=== PATIENT | male | born 1985 | race Two or more races ===

== ENCOUNTER 2024-12-11 08:02 | Emergency (ER) | payer BC ==
[~2024-12-11] VITALS: Ht 175.3 cm; Wt 95.3 kg
[2024-12-11 08:09] VITALS: BP 135/78
[2024-12-11] MEDS ORDERED: CLIN300C3 PO (08:35)
[2024-12-11] MEDS ORDERED: IBUP-1953 PO (08:35)
[2024-12-11] MEDS ORDERED: IBUPROFEN 800 MG TABLET ONE (08:42)
[2024-12-11] MEDS ORDERED: CLINDAMYCIN HCL 300 MG CAPSULE ONE (08:42)
[2024-12-11] MEDS ORDERED: ACETAMINOPHEN 500 MG TABLET ONE (08:42)
[2024-12-11] MEDS: CLINDAMYCIN HCL 150 MG CAPSULE PO ONE (08:45)
[2024-12-11] MEDS: IBUPROFEN 800 MG TABLET PO ONE (08:46)
[2024-12-11] MEDS: ACETAMINOPHEN 500 MG TABLET PO ONE (08:46)
[2024-12-11 09:03] VITALS: BP 133/75; O2SAT 98
== END 2024-12-11 09:03 | disposition home or self-care (01) ==
LOC: ER 08:02
DX: K04.7 Periapical abscess without sinus (principal); F15.10 Other stimulant abuse, uncomplicated
CPT/HCPCS: A4606; A4663; A9150